=== PATIENT | female | born 1970 | race Caucasian/White ===

== ENCOUNTER 2018-03-17 17:27 | Emergency (ER) | payer OTHER ==
[~2018-03-17] VITALS: Ht 162.6 cm; Wt 59.0 kg
[2018-03-17 17:43] VITALS: Ht 162.6 cm; Wt 59.0 kg
[2018-03-17 19:20] VITALS: BP 154/90
== END 2018-03-17 19:20 | disposition home or self-care (01) ==
LOC: ED 17:27
DX: N60.02 Solitary cyst of left breast (principal); Z90.710 Acquired absence of both cervix and uterus; Z88.8 Allergy status to other drugs, medicaments and biological substances
CPT/HCPCS: 76641